=== PATIENT | male | born 1950 | race Caucasian/White ===

== ENCOUNTER 2018-09-03 06:36 | Day surgery (SDC) | payer MEDICARE ==
[~2018-09-03 06:36] MED LIST: KETOROLAC TROMETHAMINE 0.45% 4 DROP/0.4 ML DROPERETTE OS PRN
[2018-09-03] MEDS: TETRACAINE HCL 0.5% OPH SOLN 0.6 ML DROPERETTE OS PRN ×4 (07:02→07:46)
[2018-09-03] MEDS: BESIFLOXACIN HCL 0.6% OPH SUSP 5 ML BOTTLE OS PRN ×4 (07:03→08:17)
[2018-09-03] MEDS: CYCLOPENTOLATE 0.2%/PHENYLEPHRINE 1% OPH SOLN 2 ML OS PRN ×3 (07:03→07:24)
[2018-09-03] MEDS: TROPICAMIDE 1% OPH SOLN 3 ML OS PRN ×3 (07:03→07:24)
[2018-09-03] MEDS ORDERED: LIDOCAINE 1% INJ-PF (10 MG/ML) 30 ML SDV ONE (07:07)
[2018-09-03] MEDS ORDERED: EPINEPHRINE INJ/PF 1 MG/1 ML AMPULE ONE (07:07)
[2018-09-03] MEDS ORDERED: CHONDR SU A NA/HYALUR INTRAOC KIT (SURGICARE) ONE (07:07)
[2018-09-03] MEDS ORDERED: LIDOCAINE 1%/PHENYLEPHRINE 1.5% 1 ML VIAL ONE (07:20)
[2018-09-03] MEDS ORDERED: MIDAZOLAM 2 MG/2 ML INJ ONE (07:28)
[2018-09-03] MEDS ORDERED: FENTANYL CITRATE INJ/PF 100 MCG/2 ML AMPUL ONE (07:28)
[2018-09-03] MEDS: TOBRAMYCIN SULFATE/DEXAMETH OPH OINTMENT 3.5 GM ONE ×2 (08:17)
== END 2018-09-03 08:55 | disposition home or self-care (01) ==
LOC: SC 06:36
PROVIDERS: ATTEND Ophthalmology
DX: H25.13 Age-related nuclear cataract, bilateral (principal); E11.9 Type 2 diabetes mellitus without complications; I10 Essential (primary) hypertension; E78.00 Pure hypercholesterolemia, unspecified; F17.210 Nicotine dependence, cigarettes, uncomplicated; Z79.84 Long term (current) use of oral hypoglycemic drugs; Z88.0 Allergy status to penicillin
CPT/HCPCS: 82962; 66984; V2632; J2250; J3490 ×2; A9270; J0171; J3010; J2370

== ENCOUNTER 2018-09-17 06:35 | Day surgery (SDC) | payer MEDICARE ==
[~2018-09-17 06:35] MED LIST changes: +KETOROLAC TROMETHAMINE 0.45% 4 DROP/0.4 ML DROPERETTE OD PRN; -KETOROLAC TROMETHAMINE 0.45% 4 DROP/0.4 ML DROPERETTE OS PRN
[2018-09-17] MEDS: TETRACAINE HCL 0.5% OPH SOLN 0.6 ML DROPERETTE OD PRN ×3 (07:01→07:55)
[2018-09-17] MEDS: CYCLOPENTOLATE 0.2%/PHENYLEPHRINE 1% OPH SOLN 2 ML OD PRN ×3 (07:02→07:27)
[2018-09-17] MEDS: BESIFLOXACIN HCL 0.6% OPH SUSP 5 ML BOTTLE OD PRN ×4 (07:02→08:19)
[2018-09-17] MEDS: TROPICAMIDE 1% OPH SOLN 3 ML OD PRN ×3 (07:02→07:27)
[2018-09-17] MEDS ORDERED: LIDOCAINE 1% INJ-PF (10 MG/ML) 30 ML SDV ONE (07:06)
[2018-09-17] MEDS ORDERED: FENTANYL CITRATE INJ/PF 100 MCG/2 ML AMPUL ONE (07:49)
[2018-09-17] MEDS ORDERED: MIDAZOLAM 2 MG/2 ML INJ ONE (07:49)
[2018-09-17] MEDS: EPINEPHRINE INJ/PF 1 MG/1 ML AMPULE ONE ×2 (08:01→08:07)
[2018-09-17] MEDS: CHONDR SU A NA/HYALUR INTRAOC KIT (SURGICARE) ONE ×2 (08:01→08:07)
[2018-09-17] MEDS: LIDOCAINE 1%/PHENYLEPHRINE 1.5% 1 ML VIAL ONE ×2 (08:01→08:07)
[2018-09-17] MEDS: TOBRAMYCIN SULFATE/DEXAMETH OPH OINTMENT 3.5 GM ONE ×2 (08:02→08:19)
== END 2018-09-17 08:54 | disposition home or self-care (01) ==
LOC: SC 06:35
PROVIDERS: ATTEND Ophthalmology
DX: H25.11 Age-related nuclear cataract, right eye (principal); E11.9 Type 2 diabetes mellitus without complications; I10 Essential (primary) hypertension; E78.00 Pure hypercholesterolemia, unspecified; F17.210 Nicotine dependence, cigarettes, uncomplicated; Z79.899 Other long term (current) drug therapy; Z79.84 Long term (current) use of oral hypoglycemic drugs; Z88.0 Allergy status to penicillin
CPT/HCPCS: 66984; 82962; V2632; J2250; J3490 ×2; A9270; J0171; J3010; J2370; 142